=== PATIENT | male | born 2000 | race African-American/Black ===

== ENCOUNTER 2020-07-08 21:53 | Emergency (ER) | payer BC, SELFPAY ==
--- NOTE | ~2020-07-08 | US_ITS ---
US scrotum doppler INDICATION: Right scrotal pain TECHNIQUE: Testicular sonogram utilizing grayscale and color Doppler FINDINGS: The testes are normal in size and appearance. No focal lesions are seen. The right testes measures 3.6 x 1.5 x 2.4 cm centimeters, and the left testis measures 4.3 x 1.7 x 2.1 cm cm. There is normal vascular flow to both testes. There are small bilateral epididymal cysts. There is no varicocele or hydrocele. IMPRESSION: 1. Small bilateral epididymal cysts. Otherwise, unremarkable testicular ultrasound. Reviewed, dictated and finalized at location A. [facility] IMPRESSION: 1. Small bilateral epididymal cysts. Otherwise, unremarkable testicular ultras ound.
[2020-07-08 21:59] VITALS: BP 152/93; PULSE 87; RESP 18; TEMP 36.5; O2SAT 99
--- NOTE | 2020-07-08 22:04 | ED.MALEGU ---
HPI - Male Genitourinary General Chief complaint: Urogenital-Male Stated complaint: testicle pain Time Seen by Provider: 07/08/20 21:55 Source: patient Mode of arrival: ambulatory Limitations: no limitations History of Present Illness HPI Narrative: A 20-year-old male presents to the emergency department with complaints of pain in his right testicle. Patient states that it has been there since yesterday and has been getting progressively worse. He denies any injury or trauma to the area. Patient states that he is sexually active with one female partner. He denies any burning or tingling when he urinates. Patient states that the testicle is very tender to palpation but if left alone it does not hurt as bad. Review of Systems Review of Systems: Narrative: CONSTITUTIONAL: Denies fever, chills, or sweats. EYES: Denies visual changes, redness, or discharge. ENT: Denies rhinorrhea, congestion, sore throat, or otalgia. CARDIOVASCULAR: Denies chest pain, palpitations, or edema. RESPIRATORY: Denies cough or dyspnea. GASTROINTESTINAL: Denies abdominal pain, nausea, vomiting, or diarrhea. GENITOURINARY: Denies dysuria or hematuria. Endorses right testicular pain SKIN: Denies rash or itching. MUSCULOSKELETAL: Denies back pain, joint pain, or myalgia. NEUROLOGIC: Denies headache, numbness, dizziness, or weakness. PSYCHIATRIC: Denies anxiety or depression. Exam Narrative: Exam Narrative: GENERAL: Well-appearing, well-nourished, and in no acute distress. HEAD: Normocephalic, atraumatic. EYES: PERRLA and EOMI. ENT: Nares clear, no rhinorrhea or epistaxis. Mucous membranes moist. Oropharynx without tonsillar hypertrophy exudate or other lesions. Bilateral TMs pearly landrum nonbulging NECK: Supple. No adenopathy or masses. No carotid bruits or JVD CHEST: Clear to auscultation. No respiratory distress. No wheezes rales or rhonchi HEART: Regular rate and rhythm. No murmur heard. Normal peripheral pulses. ABDOMEN: Soft, nontender, nondistended, normal active bowel sounds.\ : Circumcised male, probable varicoceles palpated in the scrotum, tenderness palpation of the right testicle. EXTREMITIES: Normal range of motion. No edema. SKIN: Warm, dry, no rash. NEURO: No focal deficits. Alert and oriented x3. PSYCH: Normal mood and affect. Course Reevaluation(s) Reevaluation #1: Patient resting comfortably at this time. Performed care update and reevaluated. He has no further questions at this time explained to him the diagnosis and what I feel is likely going on. Patient recommend to follow-up with urology should his symptoms continue. Time: 23:40 Vital Signs Vital signs: Vital Signs Temperature 36.5 C 07/08/20 21:59 Pulse Rate 87 07/08/20 21:59 Respiratory Rate 18 07/08/20 21:59 Blood Pressure 152/93 H 07/08/20 21:59 Pulse Oximetry 99 07/08/20 21:59 Temperature 36.5 C 07/08/20 21:59 Pulse Rate 87 07/08/20 21:59 Respiratory Rate 18 07/08/20 21:59 Blood Pressure 152/93 H 07/08/20 21:59 Pulse Oximetry 99 07/08/20 21:59 MDM - Male Genitourinary MDM Narrative Medical decision making narrative: In brief this is a 20-year-old male who came into the emergency department with complaints of right testicular pain. Patient identified no certain injuries. Ultrasound was performed and did not demonstrate any signs of torsion. Further findings on the ultrasound were unremarkable. Based on the patient's physical examination I do feel he may have a mild varicocele issue. Patient was encouraged to wear supportive undergarments and follow-up with urology should his symptoms continue. Medical Records Attestation: I reviewed the patient's medical records. Lab Data Labs: Lab Results 07/08/20 07/08/20 Range/Units 22:14 22:14 Urine Color Yellow (Yellow) Urine Appearance Clear (Clear) Urine pH 7.0 (5.0-9.0) Ur Specific Sanders 1.026 (1.001-1.035) Urine Protein Negative (Negative) mg/dL Urine Gluco
[2020-07-08 22:56] LABS: Add Urine Microscopic? NO; Appearance Urine Clear (Clear); Bilirubin Urine Negative (Negative); Blood Urine Negative (Negative); Color Urine Yellow (Yellow); Glucose Urine UA Negative (Negative); Ketones Urine Negative (Negative); Leukocyte Esterase Ur Negative LEU/UL (Negative); Nitrate Urine Negative (Negative); Protein Urine Negative (Negative); Specific Grav Ur 1.026 (1.001-1.035); Urobilinogen Urine Negative mg/dL (<2.0)
[2020-07-08 23:45] VITALS: BP 143/84; PULSE 84; RESP 18; O2SAT 99
== END 2020-07-08 23:45 | disposition home or self-care (01) ==
PROVIDERS: Emergency Provider Emergency Medicine
DX: N50.811 Right testicular pain (principal)
CPT/HCPCS: 76870; 81003; 87491; 87591; 93976; 99284